=== PATIENT | male | born 1985 | race Asian ===

== ENCOUNTER 2019-06-04 07:15 | Day surgery (SDC) | payer OTHER ==
[2019-05-31 13:23] VITALS: BMI 26.4
[2019-06-04] MEDS ORDERED: ONDANSETRON 4 MG/2 ML VIAL IVPUSH PRN (09:08)
[2019-06-04] MEDS ORDERED: PROMETHAZINE HCL 25 MG/1 ML VIAL IVPUSH PRN (09:08)
[2019-06-04] MEDS ORDERED: PROMETHAZINE HCL 25 MG/1 ML VIAL IVPB PRN (09:15)
[2019-06-04] MEDS ORDERED: LACTATED RINGERS SOLUTION 1,000 ML IV SCH (09:15)
[2019-06-04] MEDS ORDERED: BUPIVACAINE HCL/PF 0.5% (5 MG/ML) 30 ML VIAL IJ ONE ×2 (10:18→10:54)
[2019-06-04] MEDS ORDERED: MIDAZOLAM HCL 2 MG/2 ML SINGLE DOSE VIAL ONE (10:23)
[2019-06-04] MEDS ORDERED: LIDOCAINE HCL/PF 2% SDV 5ML VIAL ONE (10:24)
[2019-06-04] MEDS ORDERED: ceFAZolin SODIUM 1 GM VIAL ONE (10:43)
[2019-06-04] MEDS ORDERED: SODIUM CHLORIDE 0.9% P/F 10 ML VIAL IJ ONE (10:43)
[2019-06-04] MEDS ORDERED: ceFAZolin SODIUM 1 GM VIAL IVPB ONE (10:44)
[2019-06-04] MEDS ORDERED: DEXAMETHASONE SOD PHOSPHATE 4 MG/1 ML VIAL ONE (10:47)
[2019-06-04] MEDS ORDERED: BACITRACIN 15 GM TUBE TOPICAL OINTMENT TP ONE (10:55)
[2019-06-04] MEDS ORDERED: KETOROLAC TROMETHAMINE 30 MG/1 ML VIAL ONE (11:01)
--- NOTE | 2019-06-04 11:26 | OP ---
Operative Note - Note: Operative Date: 06/04/19 Pre-Operative Diagnosis: Penile adhesions Operation: Revision Circumcision and penoplasty Post-Operative Diagnosis: Same as Pre-op Surgeon: Ramona Ackerman Anesthesia: General Specimens Removed: Penile skin Operative Report Dictated: Yes
[2019-06-04 12:29] VITALS: BP 134/71; PULSE 68; TEMP 97.5
--- NOTE | 2019-06-04 12:30 | OP ---
DATE OF OPERATION: 06/04/2019 SURGEON: Ramona Ackerman MD ANESTHESIA: General. PREOPERATIVE DIAGNOSIS: adhesions and excess prepuce. POSTOPERATIVE DIAGNOSIS: adhesions and excess prepuce. PROCEDURE: Revision circumcision and penoplasty. FINDINGS: Large amount of excess skin noted around the glans penis and tight to median raphe. DESCRIPTION OF PROCEDURE: Patient in supine position under general anesthesia was prepped and draped in the usual manner. The excess prepuce and the penile skin was marked with ink then the median raphe was excised and the excess prepuce removed. All the bleeding points were electrocautery, and the skin was approximated, and the wound was closed with 3-0 in the shaft and 4-0 plain in the glans penis area. Pressure dressing applied after giving Marcaine 0.5%. About 5 mL was used. Patient tolerated the procedure very well and left the operating room in a satisfactory condition. Modesta [id number]
--- NOTE | 2019-06-06 17:32 | PATH ---
Surgical Pathology Report Patient Name: EDEL CHEN [facility]. Rec. #: [id number] /Age/Gender: 1985 (Age: 34) / M Account: [id number] Location: [facility] Taken: 06/04/2019 Received: 06/04/2019 Reported: 06/06/2019 Physicians: Ramona Ackerman M.D. Specimen(s) Received [place] Clinical History Phimosis, balanoposthitis Final Diagnosis [place], RESECTION: PORTION OF [place] WITH MILD CHRONIC INFLAMMATION. Electronically Signed Beatrice Naidu M.D. Gross Description Specimen received in formalin, labeled "foreskin", consists of one circular piece of wrinkled skin measuring 2.5 x 2.0 x 1.5cm. No discrete lesion noted on the surface. [employer] Layout sections are submitted in one cassette. ALISON/06/05/2019 isatu/06/05/2019
== END 2019-06-04 12:30 | disposition home or self-care (01) ==
LOC: JASU-SURG 07:15
PROVIDERS: ATTEND Urology
PROC: 0VTTXZZ Resection of Prepuce, External Approach (ICD-10-PCS; principal; 2019-06-04 10:00)
DX: N47.5 Adhesions of prepuce and glans penis (principal); N47.0 Adherent prepuce, newborn
CPT/HCPCS: 88304-TC; 94760